=== PATIENT | female | born 1980 | race Two or more races ===

== ENCOUNTER 2022-05-13 21:54 | Emergency (ER) | payer MEDICAID ==
[~2022-05-13] VITALS: Ht 167.6 cm; Wt 63.0 kg
[2022-05-14] MEDS ORDERED: MORPHINE SULFATE 4 MG/ML SYR/VIAL IM ONE (02:15)
[2022-05-14] MEDS ORDERED: HYDR-4798 PO (02:24)
[2022-05-14 02:42] VITALS: BP 125/74
== END 2022-05-14 02:43 | disposition home or self-care (01) ==
LOC: ER 21:54
DX: R07.81 Pleurodynia (principal); W01.0XXA Fall on same level from slipping, tripping and stumbling without subsequent striking against object, initial encounter; Y93.89 Activity, other specified; Y92.89 Other specified places as the place of occurrence of the external cause; Y99.8 Other external cause status
CPT/HCPCS: 71101; 96372; 99283; J2270

== ENCOUNTER 2022-05-28 07:17 | Emergency (ER) | payer MEDICAID ==
[~2022-05-28] VITALS: Ht 167.6 cm; Wt 80.0 kg
[~2022-05-28 07:17] MED LIST: HYDR-4798 PO
[2022-05-28 07:34] VITALS: BP 129/94
[2022-05-28] MEDS ORDERED: cefTRIAXone SOD 1,000 MG VL IM ONE (08:45)
[2022-05-28] MEDS ORDERED: KETOROLAC TROMETH 60MG/2ML VIAL IM ONE (08:45)
[2022-05-28] MEDS ORDERED: CEPH-509 PO (09:35)
== END 2022-05-28 09:33 | disposition home or self-care (01) ==
LOC: ER 07:17
DX: S91.331A Puncture wound without foreign body, right foot, initial encounter (principal); R07.81 Pleurodynia; W18.09XA Striking against other object with subsequent fall, initial encounter; Y93.89 Activity, other specified; Y92.89 Other specified places as the place of occurrence of the external cause; Y99.8 Other external cause status
CPT/HCPCS: 96372; 99284; J0696; J1885

== ENCOUNTER 2023-09-15 21:31 | Emergency (ER) | payer MEDICAID ==
[~2023-09-15] VITALS: Ht 165.1 cm; Wt 81.3 kg
[~2023-09-15 21:31] MED LIST changes: +CEPH-509 PO
[2023-09-16] MEDS ORDERED: SODIUM CHLORIDE 0.9% 1,000 ML IV ONE (03:30)
[2023-09-16] MEDS ORDERED: ONDANSETRON ODT 4 MG TAB PO ONE (03:30)
[2023-09-16] MEDS ORDERED: DexAMETHasone SOD PHOS 10MG/1ML VIAL INJ IM ONE (03:30)
[2023-09-16 03:40] VITALS: BP 103/74; PULSE 91; RESP 12; TEMP 97.3
[2023-09-16 05:28] VITALS: O2SAT 96
== END 2023-09-16 05:41 | disposition home or self-care (01) ==
LOC: ER 21:31
DX: J68.8 Other respiratory conditions due to chemicals, gases, fumes and vapors (principal); J98.01 Acute bronchospasm; R07.89 Other chest pain
CPT/HCPCS: 71045; 96360; 96372; 99283; J1100; J7030; Q0162